=== PATIENT | female | born 1965 | race Caucasian/White ===

== ENCOUNTER 2020-02-11 17:38 | Emergency (ER) | payer BC ==
[~2020-02-11] VITALS: Ht 180.3 cm; Wt 74.8 kg
[2020-02-11] MEDS ORDERED: ACETAMINOPHEN ES 500 MG TABLET ONE (18:09)
--- NOTE | 2020-02-11 18:15 | NUR ---
BIBS FROMHOME TO ER BED 6. AAOX4. NOT IN RESP DISTRESS, BREATHING EVEN ADN UNLABORED. AMBULATORY. CAME IN FOR COUGH, BODY MALAISE, FEVER AND POSITIVE FOR COVID. PER PT SHE GOT TESTED ON MONDAY FOR COVID BECAUSE SHE STARTED TO HAVE SYMPTOMS. RESULT CAME BACK TODAY POSITIVE. NOTED FEVER OF 102.2 ORAL. SATTING @ 98% ON RA. PT IS PLACED ON ISOLATION W/ MASK ON. TAHIRA LORA AT THE BEDSIDE FOR EVAL.
[2020-02-11 18:22] LABS: BASOPHILS % (AUTO) 1.2 % (0.0-2.0); EOSINOPHILS % (AUTO) 0.8 % (0.0-6.0); HEMATOCRIT 48 % (33-45); LYMPHOCYTES # (AUTO) 1.6 /CMM (0.8-4.8); LYMPHOCYTES % (AUTO) 38.2 % (20.0-44.0); MEAN CORPUSCULAR HGB CONC 33 g/dl (31.0-36.0); MEAN CORPUSCULAR VOLUME 90 fL (82-100); MONOCYTES # (AUTO) 0.3 /CMM (0.1-1.30); MONOCYTES % (AUTO) 8.2 % (2.0-12.0); NEUTROPHILS # (AUTO) 2.2 /CMM (1.8-8.9); NEUTROPHILS % (AUTO) 51.6 % (43.0-81.0); PLATELET COUNT (AUTO) 176 /CMM (150-450); RED BLOOD CELL COUNT(AUTO) 5.37 MIL/uL (4.0-5.2); WHITE BLOOD COUNT (AUTO) 4.2 K/uL (4.3-11.0)
[2020-02-11] MEDS ORDERED: ACETAMINOPHEN 325 MG TABLET PO ONE (18:30)
[2020-02-11 18:31] LABS: CALCIUM, SERUM 8.7 mg/dL (8.5-10.1); CREATININE 0.9 mg/dL (0.6-1.3); POTASSIUM 4.3 mmol/L (3.5-5.1)
[2020-02-11] MEDS ORDERED: IV NS 0.9% 500 ML BAG IV ONE (19:00)
--- NOTE | 2020-02-11 19:45 | NUR ---
Patient discharged to home in stable condition. Written and verbal after care instructions given. Patient verbalizes understanding of instruction.IV removed. Catheter intact and site benign. Pressure and 4x4 applied to site. No bleeding noted. Pt ambulatory with a steady gait
[2020-02-11 19:49] VITALS: BP 133/70
== END 2020-02-11 19:49 | disposition home or self-care (01) ==
LOC: ER 17:38
DX: U07.1 COVID-19 (principal); E86.0 Dehydration; R91.8 Other nonspecific abnormal finding of lung field; D72.819 Decreased white blood cell count, unspecified
CPT/HCPCS: 36415; 71045; 80048; 85025; 99284; J7040